=== PATIENT | female | born 1990 | race Caucasian/White ===

== ENCOUNTER 2017-09-28 17:03 | Outpatient (CLI) | payer MEDICAID | END 2017-09-28 18:20 | disposition home or self-care (01) | LOC: OBT 17:03 → L-D 17:04 → OBT 18:20 | DX: O76 Abnormality in fetal heart rate and rhythm complicating labor and delivery (principal); Z3A.37 37 weeks gestation of pregnancy | CPT/HCPCS: 76818 ==

== ENCOUNTER 2017-10-01 10:13 | Outpatient (CLI) | payer MEDICAID | END 2017-10-01 12:32 | disposition home or self-care (01) | LOC: OBT 10:13 → L-D 10:13 → OBT 12:32 | DX: O36.5930 Maternal care for other known or suspected poor fetal growth, third trimester, not applicable or unspecified (principal); Z3A.37 37 weeks gestation of pregnancy | CPT/HCPCS: 76816; 76818 ==

== ENCOUNTER 2017-10-08 09:55 | Inpatient (IN) | payer MEDICAID ==
[2017-10-08] MEDS ORDERED: OXYTOCIN 30 UNITS/LR 500 ML IV (16:30)
[2017-10-08] MEDS ORDERED: CARBOPROST 250 MCG INJ IM (16:30)
[2017-10-08] MEDS ORDERED: LIDOCAINE 1% (MPF) 30 ML INJ INJ (16:30)
[2017-10-08] MEDS ORDERED: METHYLERGONOVINE 0.2 MG INJ IM (16:30)
[2017-10-08] MEDS ORDERED: MISOPROSTOL 200 MCG TAB PR (16:30)
[2017-10-08] MEDS: LACTATED RINGER'S 1,000 ML IV ×2 (17:27→23:36)
[2017-10-08 18:41] LABS: ADD MAN DIFF? NO
[2017-10-08 18:42] LABS: BASOPHILS % 0.3 % (0.0-2.0); EOSINOPHILS % 0.2 % (0.0-7.0); HEMATOCRIT 34.5 % (37.0-47.0); HEMOGLOBIN 11.4 g/dl (12.0-16.0); LYMPHOCYTES # 2.2 10^3/ul (0.8-2.9); LYMPHOCYTES % 23.3 % (15.0-51.0); MEAN CORPUSCULAR HEMOGLOBIN 28.4 pg (29.0-33.0); MEAN PLATELET VOLUME 9.7 fl (7.4-10.4); MONOCYTE # 0.4 10^3/ul (0.3-0.9); MONOCYTES % 4.5 % (0.0-11.0); NEUTROPHIL # 6.8 10^3/ul (1.6-7.5); NEUTROPHILS % 71.1 % (39.0-77.0); PLATELET COUNT 258 10^3/UL (140-415); RED BLOOD COUNT 4.01 10^6/ul (4.20-5.40); RED CELL DISTRIBUTION WIDTH 15.1 % (11.5-14.5)
[2017-10-08 18:42] LABS: WHITE BLOOD COUNT 9.6 10^3/ul (4.8-10.8)
[2017-10-08 19:02] LABS: INR 0.94; PROTIME 12.7 Sec (11.9-14.9)
[2017-10-08 19:03] LABS: PARTIAL THROMBOPLASTIN TIME 29.7 Sec (25.0-35.0)
[2017-10-08] MEDS: OXYTOCIN 30 UNITS/LR 500 ML IV (20:31)
[2017-10-08 22:03] LABS: RAPID PLASMA REAGIN NONREACTIVE (NR)
[2017-10-08] MEDS: BUTORPHANOL 2 MG INJ IV (23:42)
[2017-10-09] MEDS: MINERAL OIL LIGHT 10 ML VIAL TOP (05:45)
[2017-10-09] MEDS: LACTATED RINGER'S 1,000 ML IV ×2 (06:11→14:35)
[2017-10-09] MEDS: ONDANSETRON 4 MG INJ IV (07:38)
[2017-10-10] MEDS ORDERED: FENTAnyl 2MCG/ML-ROPIV 0.2% 100 ML (00:23)
[2017-10-10] MEDS: LACTATED RINGER'S 1,000 ML IV ×2 (00:25→03:56)
[2017-10-10] MEDS ORDERED: NALOXONE (0.4 MG/ML) INJ IV (01:00)
[2017-10-10] MEDS ORDERED: FENTAnyl 2MCG/ML-ROPIV 0.2% 100 ML BAG EPI (01:00)
[2017-10-10] MEDS ORDERED: DIPHENHYDRAMINE 50 MG INJ IV (01:00)
[2017-10-10] MEDS ORDERED: ONDANSETRON 4 MG INJ IV (01:00)
[2017-10-10] MEDS: MINERAL OIL LIGHT 10 ML VIAL TOP (05:45)
[2017-10-10] MEDS: OXYTOCIN 30 UNITS/LR 500 ML IV ×3 (06:10→11:20)
[2017-10-10] MEDS ORDERED: OXYTOCIN 30 UNITS/LR 500 ML IV ×5 (06:31→09:30)
[2017-10-10] MEDS ORDERED: METHYLERGONOVINE 0.2 MG INJ IM ×3 (07:00→09:30)
[2017-10-10] MEDS ORDERED: CARBOPROST 250 MCG INJ IM ×3 (07:00→09:30)
[2017-10-10] MEDS ORDERED: MISOPROSTOL 200 MCG TAB PR ×3 (07:00→09:30)
[2017-10-10] MEDS ORDERED: NACL 0.9% 3 ML SYG IV ×3 (07:00→09:30)
[2017-10-10] MEDS: ONDANSETRON 4 MG INJ IV (07:34)
[2017-10-10] MEDS: IBUPROFEN 600 MG TAB PO ×2 (12:57→18:00)
[2017-10-10] MEDS: SENNA/DOCUSATE NA (8.6MG/50MG) TAB PO (21:22)
[2017-10-11] MEDS: IBUPROFEN 600 MG TAB PO ×5 (00:24→23:31)
[2017-10-11 08:11] LABS: ADD MAN DIFF? NO
[2017-10-11 08:17] LABS: BASOPHILS % 0.3 % (0.0-2.0); EOSINOPHILS # 0.1 10^3/ul (0.0-0.5); EOSINOPHILS % 0.8 % (0.0-7.0); HEMOGLOBIN 9.7 g/dl (12.0-16.0); LYMPHOCYTES # 2.5 10^3/ul (0.8-2.9); LYMPHOCYTES % 22.9 % (15.0-51.0); MEAN CORPUSCULAR HEMOGLOBIN 28.5 pg (29.0-33.0); MEAN CORPUSCULAR HGB CONC 33.4 g/dl (32.0-37.0); MEAN CORPUSCULAR VOLUME 85.3 fl (82.0-101.0); MONOCYTE # 0.7 10^3/ul (0.3-0.9); MONOCYTES % 6.7 % (0.0-11.0); NEUTROPHIL # 7.6 10^3/ul (1.6-7.5); NEUTROPHILS % 68.7 % (39.0-77.0); PLATELET COUNT 191 10^3/UL (140-415)
[2017-10-11 08:17] LABS: WHITE BLOOD COUNT 11.1 10^3/ul (4.8-10.8)
[2017-10-11] MEDS: BENZOCAINE 20% 56 ML SPRAY TOP (11:41)
[2017-10-11] MEDS: LANOLIN 7 GM TUBE TOP (11:41)
[2017-10-11] MEDS: WITCH HAZEL/GLYCERIN PAD PR (11:41)
[2017-10-11] MEDS: SENNA/DOCUSATE NA (8.6MG/50MG) TAB PO ×2 (11:42→21:59)
[2017-10-12] MEDS: IBUPROFEN 600 MG TAB PO ×2 (06:15→11:38)
[2017-10-12] MEDS: SENNA/DOCUSATE NA (8.6MG/50MG) TAB PO (09:00)
== END 2017-10-12 11:40 | disposition home or self-care (01) | DRG 775 ==
LOC: OBT 09:55 → PP1 10-10 08:55 → L-D 09:56 → OBT 12:16 → L-D 11:55
PROVIDERS: Obstetrics & Gynecology
PROC: 10E0XZZ Delivery of Products of Conception, External Approach (ICD-10-PCS; principal; 2017-10-10)
DX: O36.5930 Maternal care for other known or suspected poor fetal growth, third trimester, not applicable or unspecified (principal); Z37.0 Single live birth; Z3A.38 38 weeks gestation of pregnancy
CPT/HCPCS: 36415; 62319; 76816; 76818; 85025; 85610; 85730; 86592; 86850; 86900; 86901; 99464